=== PATIENT | male | born 2000 | race Caucasian/White ===

== ENCOUNTER 2025-02-06 16:48 | Emergency (ER) | payer OTHER, SELFPAY ==
--- NOTE | ~2025-02-06 | XR_ITS ---
XR chest 2V Ordering provider: Heydi Taylor MD History: 24 years Male with . cp . Comparison: None. FINDINGS: MEDIASTINUM: The cardiac silhouette is not enlarged. LUNGS: No infiltrates, effusions or pneumothorax. OTHER: No free air under the diaphragm. IMPRESSION: No acute cardiopulmonary pathology. Reviewed, dictated and finalized at location A.
--- NOTE | 2025-02-06 16:52 | ECG_ITS ---
Test Date: 2025-02-06 16:57:21 Measurements Intervals [place] Rate: 61 P: 46 ND: 148 QRS: 51 QRSD: 105 T: 38 QT: 358 QTc: 363 Interpretive Statements SINUS RHYTHM ABNORMAL ECG No previous ECG available for comparison Electronically Signed On 02-07-2025 08:06:55 CDT by Александр Mane M.D.
[2025-02-06 16:55] VITALS: BP 125/87; PULSE 60; RESP 14; TEMP 36.6; O2SAT 100
[2025-02-06 17:10] LABS: Basophils Absolute Auto 0.1 K/mm3 (0.0-0.1); Basophils Percent Auto 1.4 % (0.2-1.2); Eosinophils Absolute Auto 0.3 K/mm3 (0-0.3); Eosinophils Percent Auto 4.9 % (0-4.4); Hematocrit 44.3 % (42.0-52.0); Hemoglobin 14.3 g/dL (14.0-18.0); Immature Granulocyte Absolute 0.02 K/mm3 (0.00-0.031); Immature Granulocyte Percent A 0.3 % (0-0.5); Lymphocytes Absolute Auto 1.66 K/mm3 (0.9-3.2); Lymphocytes Percent Auto 28.9 % (18.3-44.2); Mean Corpuscular HGB Conc 32.3 g/dl (32-36); Mean Corpuscular Hemoglobin 27.9 pg (26-34); Mean Corpuscular Volume 86.4 fl (80-100); Mean Platelet Volume 10.6 fl (7.4-10.4); Monocytes Absolute Auto 0.5 K/mm3 (0.1-0.6); Monocytes Percent Auto 8.2 % (2.6-8.5); Neutrophils Absolute Auto 3.2 K/mm3 (1.3-6.7); Neutrophils Percent Auto 56.3 % (45.5-73.1); Platelet Count Result 213 k/mm3 (150-375); Red Blood Count 5.13 M/mm3 (4.6-6.20); Red Cell Distribution Width 13.3 % (11.5-14.5); White Blood Count 5.8 K/mm3 (4.5-10.0)
[2025-02-06 17:21] LABS: INR 1.1; Prothrombin Time 14.1 Seconds (11.1-14.7)
[2025-02-06 17:22] LABS: Alanine Aminotransferase 20 U/L (6-50); Albumin Level 4.7 g/dL (3.5-5.1); Alkaline Phosphatase 47 U/L (38-126); Anion Gap 10 mmol/L (4-12); Aspartate Amino Transferase 33 U/L (17-59); Bilirubin,Total 0.6 mg/dL (0.2-1.3); Blood Urea Nitrogen 6 mg/dL (9-20); Calcium 9.3 mg/dL (8.4-10.2); Carbon Dioxide 26 mmol/L (22-30); Chloride 104 mmol/L (98-107); Estimated CRCL calculation 158 ml/min; Estimated Glomerular Filt Rate > 60; Glucose 96 mg/dL (65-110); Lipase 57 U/L (23-300); Partial Thromboplastin Time 29.8 Seconds (22.3-36.8); Potassium 3.9 mmol/L (3.4-5.0); Sodium 140 mmol/L (137-145)
[2025-02-06 17:33] LABS: Troponin I < 0.012 ng/mL (0.000-0.034)
--- NOTE | 2025-02-06 17:53 | ED.CHESTPAIN ---
HPI - Chest Pain General Chief Complaint: Chest Pain <Adeline Blum PA-C - Last Filed: 02/06/25 19:47> Stated Complaint: chest wall pain <Adeline Blum PA-C - Last Filed: 02/06/25 19:47> Time Seen by Provider: 02/06/25 17:53 <Adeline Blum PA-C - Last Filed: 02/06/25 19:47> Focused HPI: This is a 24 year old male that presents to the ER for chest pain. Reports he woke up with this. He tried to go to work and was not able to work because of the pain. Reports the pain is sharp in nature. Worse with movement. Reports pain is worse with inspiration. Denies fever, cough. GENERAL: Well-appearing, well-nourished, and in no acute distress. HEAD: Normocephalic, atraumatic. CHEST: Clear to auscultation. No respiratory distress. HEART: Regular rate and rhythm. NEURO: Alert and oriented x3. Patient screened in triage and initial orders placed. Additional care and disposition to be based upon diagnostic testing and treatment. <Adeline Blum PA-C - Last Filed: 02/06/25 19:47> History of Present Illness HPI narrative: agree with MSE <Roshni Espinosa MD - Last Filed: 02/06/25 19:39> Review of Systems Review of Systems: All systems reviewed & are unremarkable except as noted in HPI and below <Roshni Espinosa MD - Last Filed: 02/06/25 19:39> Exam Narrative: EXAMINATION OF ORGAN SYSTEMS/BODY AREAS: Constitutional: Vital signs per nursing GENERAL:[No acute distress, non-toxic appearing.] HEAD: Normal with no signs of head trauma. EYES: EOMI, conjunctiva normal ENT: Hearing grossly intact LUNGS: Nonlabored breathing. HEART: [Regular rate and rhythm] ABD: [Soft], [nontender to palpation] EXT: Normal range of motion SKIN: [No rashes or lesions.] NEURO: [Alert and oriented x 3. No gross focal sensory or strength deficits.] PSYCH: Normal affect <Roshni Espinosa MD - Last Filed: 02/06/25 19:39> Course Vital Signs Vital signs: Vital Signs Temperature 97.8 F 02/06/25 16:55 Pulse Rate 60 02/06/25 16:55 Respiratory Rate 14 02/06/25 16:55 Blood Pressure 125/87 02/06/25 16:55 Pulse Oximetry 100 02/06/25 16:55 Oxygen Delivery Room Air 02/06/25 16:55 Temperature 97.8 F 02/06/25 16:55 Pulse Rate 60 02/06/25 16:55 Respiratory Rate 14 02/06/25 16:55 Blood Pressure 125/87 02/06/25 16:55 Pulse Oximetry 100 02/06/25 16:55 Oxygen Delivery Room Air 02/06/25 16:55 <Adeline Blum PA-C - Last Filed: 02/06/25 19:47> Vital Signs Temperature 97.8 F 02/06/25 16:55 Pulse Rate 60 02/06/25 16:55 Respiratory Rate 14 02/06/25 16:55 Blood Pressure 125/87 02/06/25 16:55 Pulse Oximetry 100 02/06/25 16:55 Oxygen Delivery Room Air 02/06/25 16:55 Temperature 97.8 F 02/06/25 16:55 Pulse Rate 60 02/06/25 16:55 Respiratory Rate 14 02/06/25 16:55 Blood Pressure 125/87 02/06/25 16:55 Pulse Oximetry 100 02/06/25 16:55 Oxygen Delivery Room Air 02/06/25 16:55 <Roshni Espinosa MD - Last Filed: 02/06/25 19:39> MDM - Chest Pain MDM Narrative Medical decision making narrative: ED COURSE AND MEDICAL DECISION MAKIN-year-old male presenting with chest pain. EKG done in triage negative for acute ischemic changes. Cardiac workup is initiated. EKG: Performed in triage and interpreted by me. Normal sinus rhythm. Rate 61. Normal axis. OK normal. QRS duration normal. QTc normal. No pathologic Q waves. No ST segment elevation or depression to suggest acute ischemia. No RV strain pattern. HEART score is 0 with no acute ischemic changes on EKG and negative troponin making ACS unlikely. Wells low risk with negative PERC making PE unlikely. Presentation not consistent with dissection or aneurysm without radiation of pain or pulse deficits. CXR negative for mediastinal widening. No abdominal pain or signs of sepsis that would be concerning for esophageal perforation or mediastinitis. No cardiomegaly or JVD to suggest pericardial effusion/tamponade. HEART Score: [0]. (Risk of major adverse cardiac events over 6 weeks: Score of 0-3 is low risk <2% ; Score of 4-6 is moderate risk ~12-15%; Score of 7-12 is high risk ~50%). - History - [0]. (Not suspicious 0; moderately suspicious 1; highly suspicious 2). - EKG - [0]. (No ST changes 0; non-specific ST/T changes 1; ST depression 2). - Age - [0]. (<45 = 0; 46-65 = 1; >65 = 2). - Risk factors - [0]. (0 factors = 0; 1-2 factors = 1; >2 factors = 2). - Troponin - [0]. (Normal = 0; Indeterminate = 1; High = 2). On repeat evaluation just prior to discharge, the patient is no acute distress. I had a long discussion with the patient and with shared decision making, [he] is comfortable with outpatient management. [He] was given clear return instructions by myself in person as well as on discharge paperwork. Procedures: Pulse oximetry interpretation - not hypoxic. EKG interpretation. Review of medical records. <Roshni Espinosa MD - Last Filed: 02/06/25 19:39> Lab Data Result diagrams: 02/06/25 17:02 02/06/25 17:02 <Adeline Blum PA-C - Last Filed: 02/06/25 19:47> Labs: Lab Results 02/06/25 Range/Units 17:02 WBC 5.8 (4.5-10.0) K/mm3 RBC 5.13 (4.6-6.20) M/mm3 Hgb 14.3 (14.0-18.0) g/dL Hct 44.3 (42.0-52.0) % MCV 86.4 (80-100) fl MCH 27.9 (26-34) pg MCHC 32.3 (32-36) g/dl RDW 13.3 (11.5-14.5) % Plt Count 213 (150-375) k/mm3 MPV 10.6 H (7.4-10.4) fl Immature Gran % (Auto) 0.3 (0-0.5) % Neut % (Auto) 56.3 (45.5-73.1) % Lymph % (Auto) 28.9 (18.3-44.2) % [place] % (Auto) 8.2 (2.6-8.5) % Eos % (Auto) 4.9 H (0-4.4) % Baso % (Auto) 1.4 H (0.2-1.2) % Lymph # (Auto) 1.66 (0.9-3.2) K/mm3 [place] # (Auto) 0.5 (0.1-0.6) K/mm3 Eos # (Auto) 0.3 (0-0.3) K/mm3 Baso # (Auto) 0.1 (0.0-0.1) K/mm3 Abs Immat Gran (auto) 0.02 (0.00-0.031) K/mm3 Absolute Neuts (auto) 3.2 (1.3-6.7) K/mm3 Absolute Nucleated RBC 0.000 (0.0-0.012) K/mm3 Nucleated RBC % 0.0 (0.0-0.2) % PT 14.1 (11.1-14.7) Seconds INR 1.1 APTT 29.8 (22.3-36.8) Seconds Sodium 140 (137-145) mmol/L Potassium 3.9 (3.4-5.0) mmol/L Chloride 104 (98-107) mmol/L Carbon Dioxide 26 (22-30) mmol/L Anion Gap 10 (4-12) mmol/L BUN 6 L (9-20) mg/dL Creatinine 0.70 (0.7-1.3) mg/dL Estim Creat Clear Calc 158 ml/min Estimated GFR > 60 (59 - ) Glucose 96 (65-110) mg/dL Calcium 9.3 (8.4-10.2) mg/dL Total Bilirubin 0.6 (0.2-1.3) mg/dL AST 33 (17-59) U/L ALT 20 (6-50) U/L Alkaline Phosphatase 47 (38-126) U/L Troponin I < 0.012 (0.000-0.034) ng/mL Total Protein 8.0 (6.3-8.2) g/dL Albumin 4.7 (3.5-5.1) g/dL Lipase 57 (23-300) U/L <Adeline Blum PA-C - Last Filed: 02/06/25 19:47> Lab Results 02/06/25 Range/Units 17:02 WBC 5.8 (4.5-10.0) K/mm3 RBC 5.13 (4.6-6.20) M/mm3 Hgb 14.3 (14.0-18.0) g/dL Hct 44.3 (42.0-52.0) % MCV 86.4 (80-100) fl MCH 27.9 (26-34) pg MCHC 32.3 (32-36) g/dl RDW 13.3 (11.5-14.5) % Plt Count 213 (150-375) k/mm3 MPV 10.6 H (7.4-10.4) fl Immature Gran % (Auto) 0.3 (0-0.5) % Neut % (Auto) 56.3 (45.5-73.1) % Lymph % (Auto) 28.9 (18.3-44.2) % [place] % (Auto) 8.2 (2.6-8.5) % Eos % (Auto) 4.9 H (0-4.4) % Baso % (Auto) 1.4 H (0.2-1.2) % Lymph # (Auto) 1.66 (0.9-3.2) K/mm3 [place] # (Auto) 0.5 (0.1-0.6) K/mm3 Eos # (Auto) 0.3 (0-0.3) K/mm3 Baso # (Auto) 0.1 (0.0-0.1) K/mm3 Abs Immat Gran (auto) 0.02 (0.00-0.031) K/mm3 Absolute Neuts (auto) 3.2 (1.3-6.7) K/mm3 Absolute Nucleated RBC 0.000 (0.0-0.012) K/mm3 Nucleated RBC % 0.0 (0.0-0.2) % PT 14.1 (11.1-14.7) Seconds INR 1.1 APTT 29.8 (22.3-36.8) Seconds Sodium 140 (137-145) mmol/L Potassium 3.9 (3.4-5.0) mmol/L Chloride 104 (98-107) mmol/L Carbon Dioxide 26 (22-30) mmol/L Anion Gap 10 (4-12) mmol/L BUN 6 L (9-20) mg/dL Creatinine 0.70 (0.7-1.3) mg/dL Estim Creat Clear Calc 158 ml/min Estimated GFR > 60 (59 - ) Glucose 96 (65-110) mg/dL Calcium 9.3 (8.4-10.2) mg/dL Total Bilirubin 0.6 (0.2-1.3) mg/dL AST 33 (17-59) U/L ALT 20 (6-50) U/L Alkaline Phosphatase 47 (38-126) U/L Troponin I < 0.012 (0.000-0.034) ng/mL Total Protein 8.0 (6.3-8.2) g/dL Albumin 4.7 (3.5-5.1) g/dL Lipase 57 (23-300) U/L <Roshni Espinosa MD - Last Filed: 02/06/25 19:39> Critical Care Time Critical Care Time Critical Care Time: No <Adeline Blum PA-C - Last Filed: 02/06/25 19:47> Discharge Plan Discharge Clinical Impression: Atypical chest pain <Adeline Blum PA-C - Last Filed: 02/06/25 19:47> Patient Disposition: Home <Adeline Blum PA-C - Last Filed: 02/06/25 19:47> Condition: Stable <Adeline Blum PA-C - Last Filed: 02/06/25 19:47> Instructions: Chest Pain (ED) <Adeline Blum PA-C - Last Filed: 02/06/25 19:47> Additional Instructions: Please follow-up with a PCP, you can always return to the emergency room for any further issues. <Adeline Blum PA-C - Last Filed: 02/06/25 19:47> Patient Language: Kinyarwanda <Adeline Blum PA-C - Last Filed: 02/06/25 19:47> Prescriptions: New ibuprofen 600 mg tablet 600 mg PO TID PRN (Reason: fever or pain) Qty: 30 0RF <Adeline Blum PA-C - Last Filed: 02/06/25 19:47> Follow-up/Referrals: PHYSICIAN,POULTRY FARM WORKER [Primary Care Provider] - Shira Estrella DO [Physician] - 2 Days <Adeline Blum PA-C - Last Filed: 02/06/25 19:47>
--- OUTSIDE RECORDS SUMMARY | 2025-02-06 19:46 | XMS_ITS | Referral Summary ---
Author Organization [facility] Address [address] [place] [id number] Care Team Providers Care Live Study Manager Name Role Phone No, Physician Primary Care Provider [phone] Allergies Active Allergy Reactions Criticality Noted Date Comments Amoxicillin Unknown 07/14/2023 Penicillins Unknown 07/14/2023 Social History Tobacco Use Types Packs/Day Years Used Date Smoking Tobacco: Never Tobacco Cessation:Counseling Given: Not Answered Alcohol Use Standard Drinks/Week Comments Never 0 (1 standard drink = 0.6 oz pur e alcohol) Personal Safety Answer Date Recorded Have you ever been in or are you currently in a harmful physical or emotional relationship or is someone making you feel afraid or unsafe? 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[employer] Gender Identity Not on file Sexual Orientation Not on file Last Filed Vital Signs Vital Sign Reading Time Taken Comments Blood Pressure 157/82 07/14/2023 9:20 PM CDT Pulse 68 07/14/2023 9:20 PM CDT Temperature 36.4 C (97.5 F) 07/14/2023 7:31 PM CDT Respiratory Rate 14 07/14/2023 7:31 PM CDT Oxygen Saturation 98% 07/14/2023 9:20 PM CDT Inhaled Oxygen Concentration - - Weight 101 kg (222 lb 10.6 oz) 07/14/2023 7:31 P M CDT Height 185.4 cm (6' 1 ) 07/14/2023 7:31 PM CDT Body Mass Index 29.38 07/14/2023 7:31 PM CDT Plan of Treatment Not on file Care Teams Live Study Manager Relationship Specialty Start Date End Date No, Physician PCP - General 07/14/23
--- OUTSIDE RECORDS SUMMARY | 2025-02-06 19:46 | XMS_ITS | Clinical Summary ---
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 Gender Identity Not on file Sexual Orientation Not on file Obstetrics History Last Filed Vital Signs Vital Sign Reading [...] 07/14/2023 7:31 PM CDT Plan of Treatment Health Maintenance Due Date Last Done Comments Depression Screening 2000 Hepatitis C Screening 2000 Regular Well Visit/Exam 18-64 2018 DTaP/Tdap/Td Vaccine (6 - Td or Tdap) 05/20/2022 05/20/2012, 05/15/2006, 12/03/2001, Additional history exists Influenza Vaccine (#1) 2024 Hepatitis B Screening Completed 06/26/2001, 001 Pneumococcal vaccine <65 Aged Out 07/17/2002, 12/2000 No longer eligible based on patient's age to complete this topic Varicella Vaccines Completed 04/12/2008, 07/17/2002 HPV Vaccines Completed 05/09/2015, 05/20/2012 Care Teams Margarine Maker Relationship Specialty Start Date End Date No, Physician PCP - General 07/14/23
--- NOTE | 2025-02-06 20:35 | PC.NURSE ---
Pt discharged by nimo Espinosa. No RN assigned to this pt. NIMO Handed this rn the papers after discharging pt.
== END 2025-02-06 20:37 | disposition home or self-care (01) ==
LOC: ANHED 19:45
PROVIDERS: Student in an Organized Health Care Education/Training Program; Emergency Provider Emergency Medicine
DX: R07.89 Other chest pain (principal)
CPT/HCPCS: 36415; 71046; 80053; 83690; 84484; 85025; 85610; 85730; 93005; 99284